=== PATIENT | female | born 2000 | race Caucasian/White ===

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

== ENCOUNTER 2023-07-24 08:49 | Emergency (ER) | payer OTHER ==
[~2023-07-24] VITALS: Ht 167.6 cm; Wt 96.6 kg
[~2023-07-24 08:49] MED LIST: CEPH-588 PO
[2023-07-24 08:59] VITALS: BP 148/90; PULSE 77; RESP 16; TEMP 98.3; O2SAT 99
[2023-07-24] MEDS ORDERED: [UNRECOGNIZED DRUG - CODE] TP (12:12)
[2023-07-24 13:09] VITALS: BP 148/90; PULSE 77; RESP 16; TEMP 98.3; O2SAT 99
== END 2023-07-24 13:06 | disposition home or self-care (01) ==
LOC: MED 08:49
DX: L30.9 Dermatitis, unspecified (principal); R03.0 Elevated blood-pressure reading, without diagnosis of hypertension; Z79.899 Other long term (current) drug therapy
CPT/HCPCS: 99281